=== PATIENT | female | born 1965 | race Caucasian/White ===

== ENCOUNTER 2020-12-31 08:11 | Day surgery (SDC) | payer MEDICAID, SELFPAY ==
[~2020-12-31] VITALS: Ht 160 cm; Wt 75.7 kg
[2020-12-31] MEDS ORDERED: LIDOCAINE 2%, 20 ML MDV IM ONE (09:23)
[2020-12-31] MEDS ORDERED: DESFLURANE 15 MIN GAS INH ONE (09:23)
[2020-12-31] MEDS ORDERED: ROCURONIUM BROMIDE 10 MG/ML (ZEMURON) IV ONE (09:23)
[2020-12-31] MEDS ORDERED: DEXAMETHASONE SOD PHOSPHATE 4 MG/ML VIAL IVP ONE (09:23)
[2020-12-31] MEDS ORDERED: BACITRACIN ZINC 15 GM TOPICAL OINTMENT TP ONE (09:23)
[2020-12-31] MEDS ORDERED: MUPIROCIN 2% TOPICAL OINTMENT 22 GM TP ONE (09:23)
[2020-12-31] MEDS ORDERED: LR 1,000 ML IV.SOLN IV ONE (09:23)
[2020-12-31] MEDS ORDERED: KETOROLAC TROMETHAMINE 30 MG VIAL IVP ONE ×2 (09:23→13:15)
[2020-12-31] MEDS ORDERED: NS 1000 ML IV.SOLN IV ONE ×2 (09:23)
[2020-12-31] MEDS ORDERED: EPINEPHrine JECT 0.1 MG/ML SYR IVP ONE (09:23)
[2020-12-31] MEDS ORDERED: LIDOCAINE/EPI 1% 1:100000 20 ML VIAL INJ ONE (09:23)
[2020-12-31] MEDS ORDERED: MIDAZOLAM HCL 5 MG/5 ML VIAL IVP ONE (09:23)
[2020-12-31] MEDS ORDERED: ONDANSETRON HCL 4 MG/2 ML VIAL IVP ONE (09:23)
[2020-12-31] MEDS ORDERED: fentaNYL CITRATE 250 MCG/5 ML AMP IV ONE (09:23)
[2020-12-31] MEDS ORDERED: PROPOFOL 200MG/ 20ML VIAL (DIPRIVAN) IV ONE (09:23)
[2020-12-31] MEDS ORDERED: SUGAMMADEX SODIUM 200 MG/2 ML VIAL IV ONE (09:23)
[2020-12-31] MEDS ORDERED: LR 1,000 ML IV SCH (10:15)
[2020-12-31] MEDS ORDERED: MIDAZOLAM HCL 2 MG/2 ML VIAL (VERSED) IVP PRN (10:15)
[2020-12-31] MEDS ORDERED: LABETALOL 100 MG/ 20ML VIAL IVP PRN (10:15)
[2020-12-31] MEDS ORDERED: HYDROmorphone 1 INJ. 1 MG/ML CARTRIDGE IVP PRN ×2 (10:15)
[2020-12-31] MEDS ORDERED: hydrALAZINE HCL 20 MG/ML VIAL IVP PRN (10:15)
[2020-12-31] MEDS ORDERED: ONDANSETRON HCL 4 MG/2 ML VIAL IVP PRN (10:15)
[2020-12-31] MEDS ORDERED: MEPERIDINE HCL/PF 25 MG/ML DISP.SYRIN IVP PRN (10:15)
[2020-12-31] MEDS ORDERED: METOCLOPRAMIDE HCL 10 MG/2 ML VIAL IVP PRN (10:15)
[2020-12-31] MEDS ORDERED: ONDANSETRON HCL 4 MG/2 ML VIAL ONE (12:20)
[2020-12-31] MEDS ORDERED: KETOROLAC TROMETHAMINE 30 MG VIAL ONE (13:20)
[2020-12-31 13:35] VITALS: BP_SYST 120
== END 2020-12-31 14:55 | disposition home or self-care (01) ==
LOC: SDS 08:11 → SMU 08:12 → SDS 14:55
PROVIDERS: ATTEND Otolaryngology
DX: D38.5 Neoplasm of uncertain behavior of other respiratory organs (principal); J34.0 Abscess, furuncle and carbuncle of nose; J31.0 Chronic rhinitis; J34.2 Deviated nasal septum; I10 Essential (primary) hypertension; E66.3 Overweight; Z20.828 Contact with and (suspected) exposure to other viral communicable diseases; Z79.899 Other long term (current) drug therapy
CPT/HCPCS: 30140; 30520; 31255; 31256; 31296; 87070; 87075; 87101; 87116; 88305; 88311; C1726; C9399; J0171; J1100; J1885; J2001; J2250; J2405; J2704; J2765; J3010; J7030; J7120; U0003